=== PATIENT | male | born 1965 | race Caucasian/White ===

== ENCOUNTER 2020-08-15 03:31 | Inpatient (IN) | payer BC, OTHER ==
[~2020-08-15] VITALS: Ht 170 cm; Wt 129.3 kg
[~2020-08-15 03:31] MED LIST: CEFD300C3 PO; CEPH250T PO; CEPH500C PO; CIPR7.5D2 BC; HYDR-3720 PO; IBP600T1 PO; IBUP800T26 PO; OXYC-12 PO; PRD20T PO; TRM50T PO
[2020-08-15] MEDS ORDERED: ONDANSETRON 4 MG/2 ML (SDV) Z0FRAN IVP ONE (04:00)
[2020-08-15] MEDS ORDERED: KETOROLAC 30 MG/ML VIAL IVP ONE (04:00)
[2020-08-15] MEDS ORDERED: LACTATED RINGERS 1,000 ML IV ONE ×3 (04:00→05:07)
--- NOTE | 2020-08-15 04:01 | ED General ---
General Chief Complaint: Fever-Adult/Adol Stated Complaint: DEHYDRATED,VOMITING,SOB,DIARRHEA,FEVER Nursing Triage Note: PT AMBULATES TO ED 9WITH C/O FEVER, SOB, COUGH, ACHING SINCE MONDAY MORNING. WAS TESTED FOR COVID MONDAY AND WAS NEGATIVE Source of Information: Patient Exam Limitations: No Limitations History of Present Illness Date Seen by Provider: Aug 15, 2020 Time Seen by Provider: 03:40 Initial Comments Patient to the ER by private conveyance with chief complaint of shortness of breath, having to work hard to breathe, cough, nausea, vomiting, subjective fevers and chills, intermittent diarrhea since Monday, 4 days ago. He had a negative test for Covid 4 days ago. He has not been tested since. Does not have any nausea medicines. He did take some Tylenol 5 hours ago. He feels like he has cottonmouth. He denies dysuria. Allergies and Home Medications Allergies Coded Allergies: No Known Drug Allergies (Unverified , 08/15/20) Home Medications Azithromycin 250 Mg Tablet, 250 MG PO UD TAKE 2 TABLETS ON DAY ONE THEN TAKE 1 TABLET DAILY FOR FOUR MORE DAYS Prescribed by: JOSE MIGUEL BLANCA on 08/16/20 1010 Patient Home Medication List Home Medication List Reviewed: Yes Review of Systems Review of Systems Constitutional: No chills, No diaphoresis EENTM: No ear discharge, No ear pain Respiratory: No cough, No short of breath Cardiovascular: No edema, No palpitations Gastrointestinal: No abdominal pain, No nausea, No vomiting Genitourinary: No discharge, No dysuria Musculoskeletal: No back pain, No joint pain Skin: No pruritus, No rash All Other Systems Reviewed Negative Unless Noted: Yes Past Kmxtfwy-Oqurii-Cmjwlh Hx Patient Social History Tobacco Use?: No Use of E-Cig and/or Vaping dev: No Substance use?: No Alcohol Use?: No Past Medical History Reproductive Disorders: No Chronic Back Pain Physical Exam Vital Signs Vital Signs - First Documented 08/15/20 08/15/20 03:43 03:55 Temp 38.4 Pulse 107 Resp 22 B/P (MAP) 140/89 (106) Pulse Ox 96 O2 Delivery Room Air O2 Flow Rate 2.00 Capillary Refill : Less Than 3 Seconds Height, Weight, BMI Height: 5'10" Weight: 310lbs. oz. 140.197038ap; 44.00 BMI Method:Stated General Appearance: No Apparent Distress, WD/WN Eyes: Bilateral Eye Normal Inspection, Bilateral Eye PERRL, Bilateral Eye EOMI HEENT: PERRL/EOMI, Pharynx Normal, Moist Mucous Membranes Neck: Full Range of Motion, Normal Inspection, Non Tender Respiratory: Lungs Clear, Normal Breath Sounds, No Accessory Muscle Use, No Respiratory Distress Cardiovascular: Regular Rate, Rhythm, No Edema, Normal Peripheral Pulses, Tachycardia Gastrointestinal: Normal Bowel Sounds, Non Tender, Soft Extremity: Normal Capillary Refill, Normal Inspection, No Pedal Edema Neurologic/Psychiatric: Alert, Oriented x3, Other (Anxious affect) Skin: Normal Color, Warm/Dry Focused Exam Sepsis Stage: Sepsis Possible Source: Pulmonary Lactate Level 08/15/20 03:59: Lactic Acid Level 1.41 Time of Focused Exam: 05:43 Respiratory: Lungs Clear, Normal Breath Sounds, Respiratory Distress (mild 97% on 2 L by nasal cannula) Cardiovascular: Regular Rate, Rhythm, No Edema, Normal Peripheral Pulses Capillary Refill: Less Than 3 Seconds Peripheral Pulses: 2+ Radial Pulses (R), 2+ Radial Pulses (L) Skin: normal color, warm/dry Lactic Acid Level Laboratory Tests Test 08/15/20 03:59 Lactic Acid Level 1.41 MMOL/L (0.50-2.00) Within 3hrs of presentation: Admin fluids, Admin ABX, Blood cultures prior to ABX's, Focus exam, Lactate level Progress/Results/Core Measures Suspected Sepsis SIRS Temperature: Pulse: 107 Respiratory Rate: 22 Laboratory Tests 08/15/20 03:59: White Blood Count 11.5H Blood Pressure 140 /89 Mean: 106 08/15/20 03:59: Lactic Acid Level 1.41 Laboratory Tests 08/15/20 03:59: Creatinine 1.12, INR Comment 1.1, Platelet Count 221, Total Bilirubin 2.0H Results/Orders Lab Results Laboratory Tests Test 08/15/20 03:46 08/15/20 03:47 08/15/20 03:59 08/15/20 04:20 Range/Units Blood Gas Puncture Site NOT INDICATED Blood Gas Patient Temperature 38.4 Arterial Blood pH 7.54 H 7.37-7.43 Arterial Blood Partial Pressure CO2 25 L 35-45 MMHG Arterial Blood Partial Pressure O2 62 L 79-93 MMHG Arterial Blood HCO3 22 L 23-27 MMOL/L Arterial Blood Total CO2 22.6 21.0-31.0 MMOL/L Arterial Blood Oxygen Saturation 94 94-100 % Arterial Blood Base Excess -0.4 -2.5-2.5 MMOL/L Ghulam Test NA Blood Gas Ventilator Setting NO Blood Gas Inspired Oxygen NOT INDICATED Influenza Type A (RT-PCR) Not Detected Not Detecte Influenza Type B (RT-PCR) Not Detected Not Detecte SARS-CoV-2 RNA (RT-PCR) Not Detected Not Detecte White Blood Count 11.5 H 4.3-11.0 10^3/uL Red Blood Count 4.85 4.30-5.52 10^6/uL Hemoglobin 14.6 13.3-17.7 g/dL Hematocrit 41 40-54 % Mean Corpuscular Volume 85 80-99 fL Mean Corpuscular Hemoglobin 30 25-34 pg Mean Corpuscular Hemoglobin Concent 36 32-36 g/dL Red Cell Distribution Width 12.2 10.0-14.5 % Platelet Count 221 130-400 10^3/uL Mean Platelet Volume 9.3 9.0-12.2 fL Immature Granulocyte % (Auto) 0 % Neutrophils (%) (Auto) 83 H 42-75 % Lymphocytes (%) (Auto) 10 L 12-44 % Monocytes (%) (Auto) 6 0-12 % Eosinophils (%) (Auto) 0 0-10 % Basophils (%) (Auto) 0 0-10 % Neutrophils # (Auto) 9.5 H 1.8-7.8 10^3/uL Lymphocytes # (Auto) 1.1 1.0-4.0 10^3/uL Monocytes # (Auto) 0.7 0.0-1.0 10^3/uL Eosinophils # (Auto) 0.0 0.0-0.3 10^3/uL Basophils # (Auto) 0.0 0.0-0.1 10^3/uL Immature Granulocyte # (Auto) 0.1 0.0-0.1 10^3/uL Prothrombin Time 14.1 12.2-14.7 SEC INR Comment 1.1 0.8-1.4 Activated Partial Thromboplast Time 39 H 24-35 SEC D-Dimer 1.26 H 0.00-0.49 UG/ML Sodium Level 133 L 135-145 MMOL/L Potassium Level 3.7 3.6-5.0 MMOL/L Chloride Level 97 L 98-107 MMOL/L Carbon Dioxide Level 19 L 21-32 MMOL/L Anion Gap 17 H 5-14 MMOL/L Blood Urea Nitrogen 15 7-18 MG/DL Creatinine 1.12 0.60-1.30 MG/DL Estimat Glomerular Filtration Rate > 60 BUN/Creatinine Ratio 13 Glucose Level 139 H 70-105 MG/DL Lactic Acid Level 1.41 0.50-2.00 MMOL/L Calcium Level 9.5 8.5-10.1 MG/DL Corrected Calcium 9.7 8.5-10.1 MG/DL Total Bilirubin 2.0 H 0.1-1.0 MG/DL Aspartate Amino Transf (AST/SGOT) 18 5-34 U/L Alanine Aminotransferase (ALT/SGPT) 27 0-55 U/L Alkaline Phosphatase 99 40-136 U/L C-Reactive Protein High Sensitivity 28.66 H 0.00-0.50 MG/DL Total Protein 7.1 6.4-8.2 GM/DL Albumin 3.7 3.2-4.5 GM/DL Procalcitonin 0.95 H <0.10 NG/ML Urine Color ORANGE Urine Clarity SL CLOUDY Urine pH 6.0 5-9 Urine Specific [place] 1.025 H 1.016-1.022 Urine Protein 2+ H NEGATIVE Urine Glucose (UA) TRACE H NEGATIVE Urine Ketones 3+ H NEGATIVE Urine Nitrite NEGATIVE NEGATIVE Urine Bilirubin 2+ H NEGATIVE Urine Urobilinogen >=8.0 < = 1.0 MG/DL Urine Leukocyte Esterase NEGATIVE NEGATIVE Urine RBC (Auto) 2+ H NEGATIVE Urine RBC 2-5 H /HPF Urine WBC NONE /HPF Urine Squamous Epithelial Cells 2-5 /HPF Urine Crystals NONE /LPF Urine Bacteria NEGATIVE /HPF Urine Casts PRESENT /LPF Urine Hyaline Casts 0-2 H /LPF Urine Mucus SMALL H /LPF Urine Culture Indicated CULTURE PENDING Micro Results Microbiology 08/15/20 Urine Culture - Final, Complete >=3 Gram Positive Isolates 08/15/20 Blood Culture - Preliminary, Resulted No growth 08/15/20 Blood Culture - Preliminary, Resulted No growth My Orders Orders - CLARENCE RAM Cbc With Automated Diff (08/15/20 03:51) Comprehensive Metabolic Panel (08/15/20 03:51) Blood Culture (08/15/20 03:51) Urinalysis (08/15/20 03:51) Urine Culture (08/15/20 03:51) Protime With Inr (08/15/20 03:51) Partial Thromboplastin Time (08/15/20 03:51) Chest 1 View, Ap/Pa Only (08/15/20 03:51) Ed Iv/Invasive Line Start (08/15/20 03:51) Ed Iv/Invasive Line Start (08/15/20 03:51) Vital Signs Adult Sepsis Patie Q15M (08/15/20 03:51) O2 (08/15/20 03:51) Remove Rings In Anticipation O (08/15/20 03:51) Lactic Acid Analyzer (08/15/20 03:51) Lactated Ringers (Lr 1000 Ml Iv Solution (08/15/20 04:00) Ed Iv/Invasive Line Start (08/15/20 03:51) Lactated Ringers (Lr 1000 Ml Iv Solution (08/15/20 04:00) Covid 19 Inhouse Test (08/15/20 03:51) Influenza A And B By Pcr (08/15/20 03:51) Ketorolac Injection (Toradol Injection) (08/15/20 04:00) Ondansetron Injection (Zofran Injectio (08/15/20 04:00) Hs C Reactive Protein (08/15/20 04:01) Procalcitonin (Pct) (08/15/20 04:01) Fibrin Degradation Products (08/15/20 04:01) Arterial Blood Gas (08/15/20 03:46) Dexamethasone Injection (Decadron Injec (08/15/20 04:15) Dexamethasone Injection (Decadron Injec (08/15/20 04:13) Ceftriaxone (Rocephin) (08/15/20 04:45) Azithromycin Injection (Zithromax Inject (08/15/20 04:45) Medications Given in ED Vital Signs/I&O 08/15/20 08/15/20 03:43 03:55 Temp 38.4 Pulse 107 Resp 22 B/P (MAP) 140/89 (106) Pulse Ox 96 96 O2 Delivery Room Air Nasal Cannula O2 Flow Rate 2.00 Capillary Refill : Less Than 3 Seconds Blood Pressure Mean: 106 Progress Note #1: Time: 04:00 Progress Note Tachycardia and fever, suspect viral syndrome since he is having cough, shortness of air, nausea vomiting and diarrhea. We will get a Covid swab. His oxygen saturations dipped down to 91% on room air and he has increased work of breathing effort mild to moderate so we put him on 2 L by nasal cannula which brought him up to 96 to 97%. ABG obtained. Septic work-up. 2 L since he appears quite dry likely related to his nausea vomiting and diarrhea. We will hold off on any antibiotics until we see evidence of bacterial infection. Progress Note #2: Time: 04:47 Progress Note Appears to have a lobar infiltrate. Plan to go ahead and cover him with community-acquired Pneumonia antibiotics, Rocephin and azithromycin. It is possible to account for his nausea and vomiting GI symptoms from hypoxemia. Diagnostic Imaging Diagonstic Imaging: Xray Plain Films/CT/US/NM/MRI: chest Comments Left lower lobe infiltrate. [facility], [place] NAME: ROJELIO CORREIA [facility] REC#: [id number] PT STATUS: ADM IN : 1965 PHYSICIAN: CLARENCE RAM MD ADMIT DATE: 08/15/20 Signed Date of Exam:08/15/20 CHEST 1 VIEW, AP/PA ONLY INDICATION: Shortness of breath. No prior examinations are available for comparison. FINDINGS: The heart size, mediastinal configuration, and pulmonary vascularity are within normal limits. There is no pleural effusion, pneumothorax, or pneumonia. The osseous structures are unremarkable. IMPRESSION: No acute cardiopulmonary abnormality. Dictated by: Dictated on workstation # [id number] Dict: 08/15/20 0749 Trans: 08/15/20 1220 [facility] [id number] Interpreted by: JASON DUGGAN MD Electronically signed by: JASON DUGGAN MD 08/15/20 1220 Reviewed: Reviewed by Me Departure Communication (Admissions) Time/Spoke to Admitting Phy: 05:45 Discussed the case with Dr. Blanca and he agrees to admit the patient. Impression Primary Impression: Pneumonia Qualified Codes: J18.9 - Pneumonia, unspecified organism Additional Impressions: Acute respiratory failure with hypoxemia Gastroenteritis/colitis, infectious Sepsis Qualified Codes: A41.9 - Sepsis, unspecified organism; R65.20 - Severe sepsis without septic shock; J96.01 - Acute respiratory failure with hypoxia Disposition: ADMITTED INPATIENT Condition: Stable Admissions Decision to Admit Reason: Admit from ER (General) Decision to Admit/Date: Aug 15, 2020 Time/Decision to Admit Time: 04:50 Departure-Patient Inst. Referrals: LEO MOHAMUD MD (PCP/Family) Primary Care Physician Scripts Azithromycin (Azithromycin) 250 Mg Tablet 250 MG PO UD, #6 TAB TAKE 2 TABLETS ON DAY ONE THEN TAKE 1 TABLET DAILY FOR FOUR MORE DAYS Prov: JOSE MIGUEL BLANCA MD 08/16/20 CLARENCE RAM Aug 15, 2020 04:01
[2020-08-15 04:03] LABS: ABG BASE EXCESS -0.4 MMOL/L (-2.5-2.5); ABG OXYGEN SATURATION 94 % (94-100); ABG PCO2 25 MMHG (35-45); ABG PH 7.54 (7.37-7.43); ABG PO2 62 MMHG (79-93); ABG TCO2 22.6 MMOL/L (21.0-31.0); INSPIRED O2 NOT INDICATED
[2020-08-15 04:04] LABS: PATIENT TEMP 38.4; VENTILATOR NO
[2020-08-15 04:11] LABS: BASOPHILS % (AUTO) 0 % (0-10); EOSINOPHILS % (AUTO) 0 % (0-10); HEMATOCRIT 41 % (40-54); HEMOGLOBIN 14.6 g/dL (13.3-17.7); LYMPHOCYTES # (AUTO) 1.1 10^3/uL (1.0-4.0); LYMPHOCYTES % (AUTO) 10 % (12-44); MEAN CORPUSCULAR HEMOGLOBIN 30 pg (25-34); MEAN CORPUSCULAR HGB CONC 36 g/dL (32-36); MEAN CORPUSCULAR VOLUME 85 fL (80-99); MEAN PLATELET VOLUME 9.3 fL (9.0-12.2); MONOCYTES # (AUTO) 0.7 10^3/uL (0.0-1.0); MONOCYTES % (AUTO) 6 % (0-12); NEUTROPHILS # (AUTO) 9.5 10^3/uL (1.8-7.8); NEUTROPHILS % (AUTO) 83 % (42-75); PLATELET COUNT 221 10^3/uL (130-400); WHITE BLOOD COUNT 11.5 10^3/uL (4.3-11.0)
[2020-08-15 04:23] LABS: ALBUMIN 3.7 GM/DL (3.2-4.5); CHLORIDE 97 MMOL/L (98-107); POTASSIUM 3.7 MMOL/L (3.6-5.0); SODIUM 133 MMOL/L (135-145)
[2020-08-15 04:24] LABS: CALCIUM 9.5 MG/DL (8.5-10.1)
[2020-08-15 04:25] LABS: FIBRIN DEGRADATION PRODUCTS 1.26 UG/ML (0.00-0.49); GLUCOSE 139 MG/DL (70-105); INR 1.1 (0.8-1.4); PROTHROMBIN TIME PATIENT 14.1 SEC (12.2-14.7); TOTAL PROTEIN 7.1 GM/DL (6.4-8.2)
[2020-08-15 04:26] LABS: CARBON DIOXIDE 19 MMOL/L (21-32)
[2020-08-15 04:28] LABS: CLARITY,URINE SL CLOUDY; COLOR,URINE ORANGE; GLUCOSE, URINE (UA) TRACE (NEGATIVE); KETONES,URINE 3+ (NEGATIVE); LEUKOCYTE ESTERASE ,URINE NEGATIVE (NEGATIVE); NITRITE,URINE NEGATIVE (NEGATIVE); PROTEIN,URINE 2+ (NEGATIVE)
[2020-08-15 04:29] LABS: ALKALINE PHOSPHATASE 99 U/L (40-136); CREATININE SERUM 1.12 MG/DL (0.60-1.30); GFR ESTIMATED > 60
[2020-08-15 04:30] LABS: BUN/CREATININE RATIO 13
[2020-08-15 04:32] LABS: ALANINE AMINOTRANSFERASE 27 U/L (0-55)
[2020-08-15] MEDS ORDERED: cefTRIAXone 1,000 MG in WATER (STERILE) FOR INJECTION 10 ML IV ONE (04:45)
[2020-08-15] MEDS ORDERED: AZITHROMYCIN INJECTION 500 MG in NS (IVPB) 250 ML IV ONE (04:45)
[2020-08-15 04:51] LABS: BACTERIA,URINE NEGATIVE /HPF; BILIRUBIN,URINE 2+ (NEGATIVE)
[2020-08-15 04:52] LABS: HYALINE CASTS, URINE 0-2 /LPF
[2020-08-15] MEDS ORDERED: LACTATED RINGERS 1,000 ML IV SCH (05:15)
--- NOTE | 2020-08-15 07:50 | Diagnostic Imaging Report ---
INDICATION: Shortness of breath. No prior examinations are available for comparison. FINDINGS: The heart size, mediastinal configuration, and pulmonary vascularity are within normal limits. There is no pleural effusion, pneumothorax, or pneumonia. The osseous structures are unremarkable. IMPRESSION: No acute cardiopulmonary abnormality. Dictated by: Dictated on workstation # [id number]
[2020-08-15] MEDS ORDERED: KETOROLAC 30 MG/ML VIAL IVP STA (09:55)
[2020-08-15] MEDS ORDERED: ANTACID SUSP 30 ML UDC (MYLANTA) PO PRN (14:00)
[2020-08-15 14:45] LABS: ABG BASE EXCESS 1.1 MMOL/L (-2.5-2.5); ABG OXYGEN SATURATION 98 % (94-100); ABG PCO2 38 MMHG (35-45); ABG PH 7.43 (7.37-7.43); ABG PO2 97 MMHG (79-93); ABG TCO2 26.5 MMOL/L (21.0-31.0); ALLENS TEST YES-POS; INSPIRED O2 3 L; VENTILATOR NO
[2020-08-15] MEDS: LACTATED RINGERS 1,000 ML IV SCH ×2 (15:14→22:04)
[2020-08-15 15:51] VITALS: BP 132/78
[2020-08-15] MEDS ORDERED: RT-ALBUTEROL SULF 2.5 MG/3 ML PRE-MIX VIAL INH PRN (16:00)
[2020-08-15 16:18] VITALS: BP 135/78
[2020-08-15] MEDS ORDERED: ACETAMINOPHEN 500 MG TAB (TYLENOL) PO PRN (20:15)
[2020-08-15 21:00] VITALS: BP 127/82
[2020-08-15 23:49] VITALS: BP 115/66
[2020-08-16 04:12] VITALS: BP 105/59
[2020-08-16] MEDS: LACTATED RINGERS 1,000 ML IV SCH ×2 (04:43→10:53)
[2020-08-16] MEDS ORDERED: cefTRIAXone 1,000 MG/SWFI 10 ML IV PUSH IV SCH ×2 (06:00)
[2020-08-16] MEDS ORDERED: AZITHROMYCIN 500 MG/NS 250 ML IVPB IV SCH ×2 (06:00)
[2020-08-16 08:01] VITALS: BP 143/89
[2020-08-16] MEDS ORDERED: AZIT250T12 PO (10:10)
--- NOTE | 2020-08-16 11:44 | Short Stay Summary-Hospitalist ---
History of Present Illness HPI/Chief Complaint Patient to the ER by private conveyance with chief complaint of shortness of breath, having to work hard to breathe, cough, nausea, vomiting, subjective fevers and chills, intermittent diarrhea since Monday, 4 days ago. He had a negative test for Covid 4 days ago. He has not been tested since. Does not have any nausea medicines. He did take some Tylenol 5 hours ago. He feels like he has cottonmouth. He denies dysuria. Upon my arrival the patient was feeling much better no rigors overnight mild cough remains nonproductive denying shortness of breath with mild left-sided pleuritic chest pain. He reports no history of thromboembolic disease he has had no leg pain or swelling. Date Seen 08/16/20 Time Seen by a Provider: 08:30 Attending Physician Yefri Kelley MD PCP Jamin Cordon MD Referring Physician Date of Admission Aug 15, 2020 at 05:00 Home Medications & Allergies Home Medications Reviewed patient Home Medication Reconciliation performed by pharmacy medication reconciliations roof service technician and/or nursing. Patients Allergies have been reviewed. Allergies Allergies Coded Allergies No Known Drug Allergies (Unverified08/15/20) Past Faqccju-Yckgkh-Epociv Hx Patient Social History Tobacco Use?: Yes Smoking Status: Never a Smoker Use of E-Cig and/or Vaping dev: No Substance use?: No Substance type: Marijuana Additional substance use comme: OCC THC, HX OF IV METH USE IN Substance frequency: Once in a while Alcohol Use?: No Alcohol Frequency: Once in a while Pt feels they are or have been: No Immunizations Up To Date Tetanus Booster (TDap): Unknown Current Status Advance Directives: No Communicates: Verbally Primary Language: Cypriot Preferred Spoken Language: Cypriot Is interpretation needed?: No Implanted or Applied Medical D: None Past Medical History Chronic Back Pain Review of Systems Constitutional: see HPI Physical Exam Physical Exam Vital Signs Vital Signs - First Documented 08/15/20 08/15/20 08/15/20 03:43 03:55 15:51 Temp 38.4 Pulse 107 Resp 22 B/P (MAP) 140/89 (106) Pulse Ox 96 O2 Delivery Room Air O2 Flow Rate 2.00 FiO2 24 Capillary Refill : Less Than 3 Seconds Height, Weight, BMI Height: 5'10" Weight: 310lbs. oz. 140.023617oc; 44.74 BMI Method:Stated General Appearance: No Apparent Distress, WD/WN Eyes: Bilateral Eye Normal Inspection, Bilateral Eye PERRL, Bilateral Eye EOMI HEENT: PERRL/EOMI, Pharynx Normal, Moist Mucous Membranes Neck: Full Range of Motion, Normal Inspection, Non Tender Respiratory: Respiratory Distress (mild 97% on 2 L by nasal cannula), Other (Rales noted fine in the left base elsewhere chest is clear) Cardiovascular: Regular Rate, Rhythm, No Edema, Normal Peripheral Pulses Gastrointestinal: Normal Bowel Sounds, Non Tender, Soft Extremity: Normal Capillary Refill, Normal Inspection, No Pedal Edema Neurologic/Psychiatric: Alert, Oriented x3, Other (Anxious affect) Skin: Normal Color, Warm/Dry Results Results/Procedures Labs Laboratory Tests 08/15/20 03:59 Patient resulted labs reviewed. Short Stay Diagnosis Discharge Diagnosis-Short Stay Admission Diagnosis 1. Left lower lobe pneumonia community-acquired likely atypical considering lack of any sputum production Covid x2 - influenza negative as well. No evidence for sepsis patient feeling much better will discharge on azithromycin have him follow-up in 3 to 4 weeks as long as symptoms continue to kiara. 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 2. History of sleep apnea aggravated by obesity with reported good compliance with CPAP. Final Discharge Diagnosis Same as admission diagnosis Conclusion Plan See admission diagnosis Copy Copies To 1: YEFRI KELLEY MD, MARK D MD Aug 16, 2020 11:44
[2020-08-16 12:05] VITALS: BP 129/87
== END 2020-08-16 12:00 | disposition home or self-care (01) | DRG 193 ==
LOC: EDUNIT# 03:31 → ER 03:36 → 4TH 05:00
PROVIDERS: ADMIT Internal Medicine; ATTEND Internal Medicine
DX: J18.9 Pneumonia, unspecified organism (principal); J96.01 Acute respiratory failure with hypoxia; A09 Infectious gastroenteritis and colitis, unspecified; E86.0 Dehydration; G47.30 Sleep apnea, unspecified; Z79.2 Long term (current) use of antibiotics
CPT/HCPCS: 36415; 71045; 80053; 81000; 82805; 83605; 84145; 85025; 85379; 85610; 85730; 86141; 87040; 87088; 87636; 94760